=== PATIENT | male | born 1995 | race Caucasian/White ===

== ENCOUNTER 2018-02-14 10:28 | Inpatient (IN) | payer OTHER ==
[~2018-02-14] VITALS: Ht 182.9 cm; Wt 72.6 kg
--- NOTE | 2018-02-15 13:00 | NUR ---
PRE-ASSESSMENT: Pre-Assessment done at intake office, client is a/o x 4, he presents with flat affect, anxious mood, and flushed face. Client is sitting in chair, difficulty staying still. Client appears disheveled, strong body odor, he avoid eye contact and rapid speech. Scattered dry scabs on face and bilateral shoulders noted. T 97.6 , RR 18, BP 113/67, HR 70, spO2 @ 98% on RA, Pain 0/10. He is fully ambulatory. He denies any allergies; he denies any withdrawal-induced seizure, no hx of overdose. PMH: Client denies any. Denies any Past Surgical history. Client denies any suicidal/homicidal ideation at this time and reports no hx of of SI/HI. Client reports no home medications Protocol regarding vitals Q4H, UDS, blood work, and controlled substances discuss with client, he verbalized understanding.
--- NOTE | 2018-02-15 13:15 | NUR ---
Admissions Note 22 year old male admitted to [facility] for withdrawal from heroin. He stated, "I Don't want to " Client was hospitalized in [place] [facility] last night for heroin intoxication, he stated, They just gave me normal saline, lots of it, they poke me like three times or more. Client is oriented to unit, educated about protocols and how to work TV and call light in his room. Weight: 160 pounds. Height: 6 Client denies a PCP Client noted with dry scattered scabs on bilateral shoulders, back and face, he stated, I pick at my skin, dont know why. Bilateral lung clear on auscultation, abdomen soft, non-tender, no edema noted. Client has NKDA, regular diet, full code ordered. Substance history First time used at 18 y/o using opioid pills after that it was not enough and he starting using heroin on a daily basis, he is using 1 gram IV for a month and a half. Last used 02/14/18 around 1600. Alprazolam first time used at 20 years old, consumes 4-8 mg PO 2-3 x a week, last used a week ago 4 mg. Cocaine first time using at age [age] years old, he currently uses 1 gram IV for a month and a half. Last used 02/14/18 around 1600. Cannabis since the age of 18, he smokes 1 oz daily, last used 02/14/18. LBM was 02/14/18. He declines PNA vaccine, stating, "No, I don't those vaccines work.." He gives verbal consent for HIV. Client states that he lives with parents and 12 year old brother. He reports history of three prior treatment. Client attended [facility] for 8 days and then to treatment for 30 days December 1016. [facility] less than 5 days on July 2016. [facility] for 15 days in 2015, can not remember exact month. His longest period of sobriety is for a month and a half on January 2017. Client stated the reason why he relapses, "It get to think how it feel when Im using and it just triggers my needs for it, and I cant help it. Client stated, When I dont use and I get withdrawal symptoms, is the worst time in my life, I get spacey, stomach pain, my joints hurts, sometimes I feel like my body is on fire, I dont know how to explain it, but you will see it in a few hours. When asked client how this treatment will be different he stated, "I do not know, I will find out here." Client reports that the reason why he continues to use substances is, "I like the feeling, plus I have easy access to them, and I can get them half the weathers, so that is not helping me a lot, now that I think about it. Client wants to stop using drugs because I am afraid to , I only finish 11th grade in high school, I should be a role model for my little brother. His parents are very supportive of him. He reports the barriers to become sober are "I think the biggest barrier or only barrier really, is myself. Client reports been in shelter November- first week of December [address] Gonzalez notified of client's admission. Urine was collected. All safety measures instituted. [place] precaution. Call light within reach. Will continue to monitor.
[2018-02-15 14:18] LABS: *AMPHETAMINE, URINE POSITIVE (NEGATIVE); *BARBITURATE, URINE NEGATIVE (NEGATIVE); *CANNABINOID, URINE POSITIVE (NEGATIVE); *COCCAINE, URINE NEGATIVE (NEGATIVE); *OPIATE, URINE POSITIVE (NEGATIVE); *PHENCYCLIDINE SCREEN,URINE NEGATIVE (NEGATIVE)
[2018-02-15] MEDS ORDERED: 4 DAY TAPER BUPRENORPHINE -SERENITY PROTOCOL SL PRN (14:45)
[2018-02-15] MEDS ORDERED: CLONIDINE HCL 0.1 MG TABLET PO PRN (15:30)
[2018-02-15] MEDS ORDERED: LOPERAMIDE HCL 2 MG CAPSULE PO PRN ×2 (15:30)
[2018-02-15] MEDS ORDERED: MAGNESIUM HYDROXIDE 30 ML LIQUID UDC PO PRN (15:30)
[2018-02-15] MEDS ORDERED: DICYCLOMINE HCL 20 MG TABLET PO PRN (15:30)
[2018-02-15] MEDS ORDERED: MAG HYDROX/AL HYDROX/SIMETH 30 ML LIQUID UDC PO PRN (15:30)
[2018-02-15] MEDS ORDERED: ACETAMINOPHEN 325 MG TABLET PO PRN (15:30)
[2018-02-15] MEDS ORDERED: ONDANSETRON HCL 4 MG TABLET PO PRN (15:30)
[2018-02-15] MEDS ORDERED: IBUPROFEN 600 MG TABLET PO PRN (15:30)
[2018-02-15] MEDS ORDERED: BUPRENORPHINE HCL 2 MG TAB.SUBL SL PRN (15:30)
[2018-02-15] MEDS ORDERED: MIRALAX 17 GM POWD.PACK PO PRN (15:30)
[2018-02-15] MEDS ORDERED: diphenhydrAMINE 50 MG CAPSULE PO PRN (15:30)
[2018-02-15 16:00] VITALS: BP 110/61
--- NOTE | 2018-02-15 16:00 | NUR ---
Client is positive for amphetamine, he denies using anything but, xanax, heroin,, cocaine, and cannabis.
[2018-02-15 16:59] LABS: BASOPHILS % (AUTO) 0.8 % (0.0-2.0); EOSINOPHILS # (AUTO) 0.3 K/uL (0.0-0.7); EOSINOPHILS % (AUTO) 4.9 % (0.0-7.0); HEMATOCRIT 37.4 % (36.7-47.1); LYMPHOCYTES # (AUTO) 2.9 K/uL (20.0-40.0); LYMPHOCYTES % (AUTO) 45.8 % (20.5-74.5); MEAN CORPUSCULAR HEMOGLOBIN 31.4 uug (23.8-33.4); MEAN CORPUSCULAR HGB CONC 35 g/dL (32.5-36.3); MEAN CORPUSCULAR VOLUME 90.7 fL (73.0-96.2); MONOCYTES # (AUTO) 0.6 K/uL (2.0-10.0); MONOCYTES % (AUTO) 9.5 % (0-11); NEUTROPHILS # (AUTO) 2.5 K/uL (1.8-8.9); PLATELET COUNT (AUTO) 274 K/uL (152-348); RED BLOOD CELL COUNT(AUTO) 4.13 MIL/uL (4.06-5.63); WHITE BLOOD COUNT (AUTO) 6.3 K/uL (3.6-10.2)
[2018-02-15] MEDS: BUPRENORPHINE HCL 2 MG TAB.SUBL SL SCH ×2 (17:00→22:06)
[2018-02-15 17:09] LABS: ALANINE AMINOTRANSFERASE 93 U/L (16-63); ALKALINE PHOSPHATASE 74 U/L (50-136); ASPARTATE AMINOTRANSFERASE 28 U/L (15-37); BILIRUBIN,TOTAL 0.4 mg/dL (0.2-1.0); CARBON DIOXIDE 31 mmol/L (21-32); CHLORIDE 103 mmol/L (98-107); CREATININE 0.8 mg/dL (0.6-1.3); GLUCOSE 115 mg/dL (74-106); MAGNESIUM 1.8 mg/dL (1.8-2.4); POTASSIUM 3.8 mmol/L (3.5-5.1); TOTAL PROTEIN, SERUM 6.6 g/dL (6.4-8.2); UREA NITROGEN, BLOOD 14 mg/dL (7-18)
[2018-02-15 17:12] LABS: ETHANOL < 3 MG/DL (0-0)
--- NOTE | 2018-02-15 17:30 | NUR ---
COWS 16 Client presents with anxiety, agitation, restlessness, sweats, nausea, body aches, decreased appetite, chills, cold, restless legs, difficulty concentrating, and fatigue. Client declined Subutex 4mg SL, stating, "I'm not ready yet, I know I''ll get really sick if I take it now." MD and CN notified. Will continue to monitor.
--- NOTE | 2018-02-15 19:09 | NUR ---
END OF SHIFT Endorse client to incoming nurse, client is room, a/o x 4, he continues to present with anxious mood, flat affect, abdominal cramps, chills, sweats, restless legs, and fatigue. Adequate PO fluid intake 600mL, void x 1. Consumes 50% of meals. Last COWS 18 @ 1730. [place] precautions in place. Call light within reach.
[2018-02-15 20:30] VITALS: BP 119/65
[2018-02-15 22:03] VITALS: BP 121/70
[2018-02-15] MEDS: LORAZEPAM 1 MG TABLET PO PRN (22:06)
[2018-02-16 00:48] VITALS: BP 122/77
--- NOTE | 2018-02-16 00:51 | NUR ---
COWS Assessment Patient is noted in bed with his eyes closed. Upon entering the room patient is able to be aroused to verbal stimuli. Breathing even and non labored. Patient denies any body discomfort, chills or sweats, no stomach cramps, pulse rate is noted to be 68, no tremors noted. Patient states "can I get some more candy and go outside to smoke?" Patient was then noted to be drinking ice tea. encourage patient to refrain from drinking caffeinated beverages and he states "this wont even do anything to me." COWS noted to be 2. Will continue to monitor.
[2018-02-16] MEDS: LORAZEPAM 1 MG TABLET PO PRN ×2 (02:30→10:09)
--- NOTE | 2018-02-16 02:32 | NUR ---
PRN Medication Administration Patient is noted returning from smoke patio and verbalizing increased anxiety, restlessness, and agitation. PRN Ativan 2mg administered as per order. Will continue to monitor.
--- NOTE | 2018-02-16 03:30 | NUR ---
PRN Medication Reassessment Patient is noted in bed with his eyes closed. Breathing even and non labored. No signs of restlessness or facial grimacing noted. PRN Ativan 2mg noted to be effective. Will continue to monitor.
[2018-02-16 04:15] VITALS: BP 114/71
--- NOTE | 2018-02-16 04:15 | NUR ---
COWS and CIWA Patient is noted in bed with his eyes closed. Breathing even and non labored. He is able to be awaken by verbal stimuli. Explained that vitals were ordered. vitals rendered. Patient is noted to easily fall back to sleep. COWS not able to be completed as per order. Will continue to monitor.
--- NOTE | 2018-02-16 07:13 | NUR ---
End of Shift Patient is noted in bed with his eyes closed. Breathing even and non labored. Patient continues on a modified Subutex taper with PRN Ativan available for increased signs and symptoms of anxiety and agitation. patient was noted with increased chills, sweats, restlessness, discomfort, running nose, increased anxiety, agitation. PRN Ativan 2mg administered x2 with medication noted to be effective. Patient noted to sleep a total of 8 hours. Last noted COWS 2 and CIWA 1. All needs attended to promptly. Will endorse to continue plan of care as ordered.
--- NOTE | 2018-02-16 07:30 | NUR ---
Start of Shift Control Panel Assembler received report on 22 year old male admitted t [facility] on 02/15/18 for medical management of Benzodiazepine and Heroin withdrawals. Pt endorses NKA, full code and regular diet. Pt endorses no PMH or PPH, with no history of seizures. Currently on Subutex taper, with PRN Ativan. Pts last recorded CIWA 4 and COWS 2, per NOC report. Pt was administered 2mg Ativan(anxiety) x2, per NOC report. Control Panel Assembler encounters pt in pts room, resting with eyes closed and even and unlabored respirations noted. Bed in low position, with wheels locked and side rails up x2. Will continue to monitor, support and encourage according to plan of care.
--- NOTE | 2018-02-16 08:00 | NUR ---
CIWA 10/COWS 8 Pt is restless and anxious, diaphoretic and nauseous with lower back pain. Will continue to monitor, support and encourage according to plan of care.
[2018-02-16 08:45] VITALS: BP 119/65
[2018-02-16] MEDS ORDERED: BUPRENORPHINE HCL 2 MG TAB.SUBL SL SCH (09:00)
[2018-02-16] MEDS ORDERED: TUBERCULIN,PURIF.PROT.DERIV. 5 TU/0.1 ML TEST ID ONE (09:00)
--- NOTE | 2018-02-16 10:09 | NUR ---
PRN Ativan Pt asks for Ativan, due to anxiety. Pt is anxious and restless. Software Engineer Mobile administered per order with pt tolerating well. Will continue to monitor, support and encourage according to plan of care.
[2018-02-16 12:30] VITALS: BP 139/85
--- NOTE | 2018-02-16 12:30 | NUR ---
CIWA 9/COWS 9 Pt with moist skin, anxiety and restlessness. Pt complain of nausea and muscle cramps. Will continue to monitor, support and encourage according to plan of care.
[2018-02-16] MEDS ORDERED: QUETIAPINE FUMARATE 25 MG TABLET PO PRN (15:00)
[2018-02-16] MEDS: BUPRENORPHINE HCL 2 MG TAB.SUBL SL SCH ×2 (15:19→21:43)
[2018-02-16 16:30] VITALS: BP 131/86
--- NOTE | 2018-02-16 16:30 | NUR ---
COWS 9 Pt reports muscle aches and nausea, pt is anxious and restless. Will continue to monitor, support and encourage according to plan of care.
--- NOTE | 2018-02-16 19:09 | NUR ---
End of Shift Director Mba provided report on 22 year old male admitted t [facility] on 02/15/18 for medical management of Benzodiazepine and Heroin withdrawals. Pt endorses NKA, full code and regular diet. Pt endorses no PMH or PPH, with no history of seizures. Currently on Subutex taper, with PRN Ativan. Pts last recorded COWS 9 recorded at 1630. Pt was administered Ativan(anxiety) PRN on day shift. Pt is entitled, rude and defensive, although apologetic. Pt is social and visible on the unit. Linear thought process with clear speech pattern. Irritable and easily agitated. Became argumentative with staff and disrespectful, later coming back to apologize. Bed in low position, with wheels locked and side rails up x2.
--- NOTE | 2018-02-16 19:14 | NUR ---
Start of shift note Received report from day shift nurse. Pt is a 22 yo male, A+Ox4, presenting to [facility] for Opiate/Benzo/Cocaine withdrawal. Pt noted to be fatigued, agitated, and anxious. Pt has no medical HX to report. Pt is on 5 day Subutex taper and PRN Ativan, tolerated well. Respirations even and unlabored. Will continue to monitor.
[2018-02-16 20:08] VITALS: BP 128/69
--- NOTE | 2018-02-16 20:08 | NUR ---
COWS Assessment COWS: 9. Pt noted with chills, enlarged pupils, fatigue, stuffy nose, fine tremors, anxiety, and piloerection of skin. Respirations even and unlabored. Will continue to monitor.
--- NOTE | 2018-02-17 00:25 | NUR ---
COWS Assessment V/S refused and COWS deferred for sleep. Pt is resting well in bed. Respirations even and unlabored. Will continue to monitor.
--- NOTE | 2018-02-17 04:14 | NUR ---
COWS Assessment V/S refused and COWS deferred for sleep. Pt is resting well in bed. Respirations even and unlabored. Will continue to monitor.
--- NOTE | 2018-02-17 07:00 | NUR ---
End of shift note Pt was continuously noted with fatigue, anxiety, and agitation. Pt remained in room for majority of shift except to get food from kitchen and to go smoke on smoking patio. Pt remained cooperative and compliant with all aspects of treatment. Pt was not given any PRN medications during shift. Pt is on 5 day Subutex taper, tolerated well. Pt slept for a total of 11 HRS. Last COWS: 9 @2007. Respirations even and unlabored. Will endorse to day shift nurse.
--- NOTE | 2018-02-17 07:30 | NUR ---
START OF SHIFT Pt 22 y/o male admitted for withdrawal from heroin. Pt received walking around hallway. Pt alert and oriented to name, place, and time. [place]. Respirations even and unlabored. Bilateral hand tremors noted. Pt appears disheveled. Clothes with dirt on it. Pt intrusive, and anxious this morning, appears focused on medications, asking multiple times when medications are due. Pt appeared upset when told that medications were due in 30 mins, appeared angry mumbling to self and scratching head. It was reported that pt slept for 11 hours last night. Pt is on a 5 day subutex taper and is on day 2. Last reported cows=9 @ 1999. Bed on lowest position with side rails x2 up for safety. Call light within reach.
[2018-02-17 08:00] VITALS: BP 116/70
--- NOTE | 2018-02-17 08:00 | NUR ---
COWS ASSESSMENT cows=16. Pt with bilateral hand tremors noted. Pt with c/o chills and intermittent sweats. Pt anxious and restless this morning. Pt agitated this morning. Pt intrusive and appears focused on medications requesting for times the medications, about 6 times this morning. Pt observed pacing the hallways in a rushed mood.
[2018-02-17] MEDS: BUPRENORPHINE HCL 2 MG TAB.SUBL SL SCH ×3 (08:39→20:56)
[2018-02-17 12:00] VITALS: BP 109/60
--- NOTE | 2018-02-17 12:00 | NUR ---
COWS ASSESSMENT cows=13. Pt with bilateral hand tremors noted. Pt still with nasal congestion. Pt states has intermittent perspiration and generalized body aches. Pt irritable and agitated throughout the day.
[2018-02-17 16:00] VITALS: BP 112/68
--- NOTE | 2018-02-17 17:07 | NUR ---
COWS ASSESSMENT cows=13. Pt with bilateral hand tremors noted. Anxious and restless, not able to sit still. Pt intrusive, demanding, and irritable. Nasal congestion noted. Complaints of generalized body aches, chills and intermittent sweats.
--- NOTE | 2018-02-17 18:51 | NUR ---
END OF SHIFT Pt 22 y/o male admitted for withdrawal from heroin. Pt alert and oriented to name, place, and time. [place]. Skin warm and moist to touch. Respirations even and unlabored. Bilateral hand tremors noted. Pt appears disheveled. Pt with dirty clothes on. Dirty under fingernails noted. Pt malodorous. Clothes scattered throughout the room. Encouraged to maintain hygiene. Pt intrusive and demanding at times throughout the day. Pt easily irritable wanting things done immediately this morning. Pt mostly isolative to room throughout the day. Pt did not attend group activity. Pt was seen by MD today. Pt medication compliant. Pt is on a 5 day subutex taper and is on day 2. Last cows=13 @1600. Bed on lowest position with side rails x2 up for safety. Call light within reach.
--- NOTE | 2018-02-17 19:53 | NUR ---
START OF SHIFT NOTE Rcvd report from outgoing nurse, pt is currently in his room. Pt is a 22 y/o male A/O to person, place, time, and purpose. Pt was admitted for medically supervised withdrawal from Heroin, Xanax, and Cocaine. Pt c/o body aches, sweats, anxiety, and agitation. Pt has been presenting w/ unkempt and disheveled appearance, malodorous, irritability, depressed and withdrawn mood, isolative, and nasal stuffiness. Pt denies S/I and H/I. Pt rcvd no PRN medicatiosn during previous shift. Last COWS 13 @ 1600. Call light is within reach. Pt will continue to be monitored and needs met.
[2018-02-17 20:00] VITALS: BP 110/87
--- NOTE | 2018-02-17 20:00 | NUR ---
COWS ASSESSMENT COWS 13. Pt presenting w/ body aches, sweats, anxiety, agitation, unkempt and disheveled appearance, malodorous, irritability, depressed and withdrawn mood, isolative, and nasal stuffiness. V/S:T:97.9, P:62, RR:16, SPO2:100, and BP:110/57.
--- NOTE | 2018-02-17 20:57 | NUR ---
PRN SEROQUEL ADMINISTRATION Seroquel 50mg given for insomnia. Pt c/o difficulty falling and staying asleep. Will reassess pt in 1 hr.
--- NOTE | 2018-02-17 21:57 | NUR ---
PRN SEROQUEL REASSESSMENT Pt is awake. Advised pt he should try to relax in bed w/ the TV off or at least low volume, the lights off, and the door closed. Then try some deep breathing exercises. Pt passively said they would try. Will keep monitoring pt.
--- NOTE | 2018-02-18 00:07 | NUR ---
COWS DEFERRED AND V/S REFUSED Pt is in bed w/ his eyes closed. Pt's respirations are unlabored and even.
[2018-02-18 04:07] VITALS: BP 117/71
--- NOTE | 2018-02-18 04:09 | NUR ---
COWS ASSESSMENT COWS 11. Pt presenting w/ sweats, tremors, goose bumps, chills, anxiety, restlessness, depressed mood, and flat affect. Pt states they had a vivid dream that woke them up. Pt states they will be able to fall back asleep after they have a smoke. V/S: T:97.8, P:68, RR:18, SPO2: 99, and BP:117/71. Will continue to monitor pt.
[2018-02-18 05:05] LABS: HEPATITIS B SURFACE AG Negative (Negative)
--- NOTE | 2018-02-18 07:11 | NUR ---
END OF SHIFT NOTE Endorsed pt to oncoming nurse, pt is currently in his room. Pt is a 22 y/o male A/O to person, place, time, and purpose. Pt was admitted for medically supervised withdrawal from Heroin, Xanax, and Cocaine. Pt c/o body aches, sweats, anxiety, and agitation. Pt has been presenting w/ unkempt and disheveled appearance, malodorous, irritability, insomnia, depressed and withdrawn mood, isolative, and nasal stuffiness. PRN Seroquel 50mg given @ 2056 for sleep, noted effective.Pt's fluid intake was 1600ml and he voided 2 times. Pt slept for 6 hrs. Last COWS 11 @ 0400. Call light is within reach.
--- NOTE | 2018-02-18 07:30 | NUR ---
START OF SHIFT NOTE Received report from night nurse, 58 year old male admitted for ETOH/Hydrocodone withdrawal and patient completed his Ativan and Subutex taper tolerated well. Per endorsement patient received PRN Trazodone,Tylenol effective per night nurse, Last CI, slept for 5 hours and patient continues on BS monitoring. Received patient asleep responsive to verbal and tactile stimuli. Patient states " I please go away i wanted to sleep". Patient noted breathing normal no SOB noted. Skin intact warm and dry to touch. All safety measures in place, Call light within reach. Will cont to monitor. Addendum: 02/18/18 at 0936 by ADORE ESPANA LVN correction- wrong patient charting
--- NOTE | 2018-02-18 07:50 | NUR ---
START OF SHIFT NOTE Received report from night nurse, 22 year old male admitted for Heroin/Xanax/Cocaine withdrawal and patient continues with Subutex taper tolerating well. Per endorsement patient received PRN Seroquel effective per night nurse, Last -, slept for 6 hours and Received patient alert awake abdominal cramps, bilateral hand tremors, hot cold flashes, yawning, anxious, agitated, restless. Educated patient regarding the importance of attending groups activities. All safety measures in place, Call light within reach. Will cont to monitor.
[2018-02-18 08:00] VITALS: BP 106/62
--- NOTE | 2018-02-18 08:00 | NUR ---
COWS ASSESSMENT COWS score noted 12, patient noted with Bilateral hand tremors, chills, difficulty sitting still, yawning, anxiety, agitation, restless, piloerection of skin, stuffy nose.
[2018-02-18] MEDS ORDERED: BUPRENORPHINE HCL 2 MG TAB.SUBL SL SCH (09:00)
[2018-02-18 12:00] VITALS: BP 117/58
--- NOTE | 2018-02-18 12:00 | NUR ---
COWS ASSESSMENT COWS 10. Pt has an unkempt room, a disheveled appearance, a flat affect and pt is laying in bed in his room. Pt presents the following s/s: anxiety, agitation, restlessness, irritability, goose bumps, anhedonia, dysphonia, body aches, sweats, hot cold flashes, chills, difficulty sitting still, bilateral hand tremors, stuffy nose, and yawning. Will cont to monitor.
--- NOTE | 2018-02-18 13:58 | NUR ---
Promped client to attend group sessions.
[2018-02-18 16:00] VITALS: BP 116/65
--- NOTE | 2018-02-18 16:00 | NUR ---
COWS ASSESSMENT COWS 9. Pt has an unkempt room, a disheveled appearance, a flat affect and pt is laying in bed in his room. Pt presents the following s/s: anxiety, agitation, restlessness, irritability, anhedonia, dysphonia, body aches, sweats, hot cold flashes, chills, difficulty sitting still, bilateral hand tremors, stuffy nose. Will cont to monitor.
--- NOTE | 2018-02-18 19:01 | NUR ---
END OF SHIFT NOTE Gave report to night nurse 22 year old male admitted for Heroin/Xanax/Cocaine withdrawal. Patient completed his taper tolerated well. Patient presented with anxiety, agitation, restless and fatigue. During shift patient received scheduled medications Patient noted attending groups activities. Most recent CIWA score noted 9. Patient scheduled for discharge in AM. Patient is compliant with medications and treatment plan. All safety measures in place, call light within reach. Patient endorse to night nurse in stable condition.
--- NOTE | 2018-02-18 19:51 | NUR ---
START OF SHIFT NOTE Rcvd report from outgoing nurse. Pt is a 22 y/o male A/O to person, place, time, and purpose. Pt was admitted for medically supervised withdrawal from Heroin and Xanax. Pt has been presenting w/ restless legs, anxious mood, disheveled and unkempt appearance, disheveled room, and clammy skin. Pt denies S/I and H/I. Pt rcvd no PRN medications during the previous shift. Pt is being discharged tomorrow 02/19/18. MD requested to be notified if s/s of withdrawal manifest or increase. Last COWS 9 @ 1600. Call light is within reach. Pt will continue to be monitored and needs met.
--- NOTE | 2018-02-18 20:00 | NUR ---
COWS ASSESSMENT COWS 8. Pt presenting w/ restless legs, anxiety, sweats, depressed and withdrawn mood, flat affect, and isolative. Pt's appearance is disheveled and unkempt. Pt's room is also disheveled. V/S: T:97.5, P:68, RR:12, SPO2:98, and BP:134/67.
[2018-02-18 20:01] VITALS: BP 134/67
--- NOTE | 2018-02-18 20:21 | NUR ---
PRN CLONIDINE AND TYLENOL ADMINISTRATION Clonidine 0.1mg and Tylenol 650mg given for anxiety, sweats, and headache. Will reassess pt in 1 hr.
--- NOTE | 2018-02-18 20:26 | NUR ---
PRN ZOFRAN ADMINISTRATION Zofran 4mg SL given for emesis w/ 1 episode of emesis. Will reassess pt in 1 hr.
--- NOTE | 2018-02-18 21:21 | NUR ---
PRN CLONIDINE AND TYLENOL REASSESSMENT Pt is in bed w/ eyes closed. pt's respirations are unlabored and even.
--- NOTE | 2018-02-18 21:26 | NUR ---
PRN ZOFRAN REASSESSMENT Pt is in bed w/ his eyes closed. Pt's respirations are unlabored and even.
--- NOTE | 2018-02-19 00:03 | NUR ---
COWS DEFERRED Pt is in bed w/ his eyes closed. Pt's respirations are unlabored and even.
--- NOTE | 2018-02-19 04:08 | NUR ---
COWS DEFERRED Pt is in bed w/ his eyes closed. Pt's respirations are unlabored and even.
--- NOTE | 2018-02-19 07:19 | NUR ---
END OF SHIFT NOTE Endorsed pt to oncoming nurse. Pt is a 22 y/o male A/O to person, place, time, and purpose. Pt was admitted for medically supervised withdrawal from Heroin and Xanax. Pt has been presenting w/ restless legs, nausea w/ 1 episode of emesis, anxious mood, disheveled and unkempt appearance, disheveled room, and clammy skin. PRN Clonidine 0.1mg , Zofran 4mg SL, and Tylenol 650mg given @ 2024 for headache, nausea, anxiety, and sweats. Pts fluid intake was 1200ml and he voided 3 times. Pt slept for 6 hrs. Last COWS 8 @ 1999. Call light is within reach.
--- NOTE | 2018-02-19 07:48 | NUR ---
START OF SHIFT NOTE Received report from night nurse, 22 year old male admitted for Heroin/Xanax/Cocaine withdrawal and patient completed his Subutex taper tolerating well. Per endorsement patient received PRN Clonidine,Tylenol, Zofran effective per night nurse, Last COWS -8, slept for 6 hours. Received patient alert awake oriented x4. Patient scheduled for discharge this morning. Patient is excited about being discharge. Educated patient regarding the importance of being compliant at rehab, patient verbalized understanding. All safety measures in place, Call light within reach. Will cont to monitor.
[2018-02-19 08:00] VITALS: BP 99/58
--- NOTE | 2018-02-19 09:35 | NUR ---
DISCHARGE NOTE Patient admitted for Heroin/Xanax/Cocaine withdrawal and patient completed his Subutex taper tolerated well. Patient denies any SI/HI. Vital signs WNL. Skin intact warm and dry to touch. All discharge paper work completed sign and dated. Patient returned all of his belonging. Patient denies any discomfort. Patient able to eat 100% of his breakfast. Patient discharge from [facility] on 02/19/18 at 0935. notified.
== END 2018-02-19 09:48 | disposition other institution (70) | DRG 895 ==
LOC: SRC 02-15 12:27
PROVIDERS: ADMIT Family Medicine Addiction Medicine; ATTEND Family Medicine Addiction Medicine
PROC: HZ2ZZZZ Detoxification Services for Substance Abuse Treatment (ICD-10-PCS; principal; 2018-02-15)
PROC: HZ41ZZZ Group Counseling for Substance Abuse Treatment, Behavioral (ICD-10-PCS; 2018-02-16)
DX: F11.23 Opioid dependence with withdrawal (principal); F33.2 Major depressive disorder, recurrent severe without psychotic features; B19.10 Unspecified viral hepatitis B without hepatic coma; F41.1 Generalized anxiety disorder; F17.210 Nicotine dependence, cigarettes, uncomplicated; Z59.0 Homelessness; Z65.3 Problems related to other legal circumstances; G47.00 Insomnia, unspecified; F10.239 Alcohol dependence with withdrawal, unspecified; F12.10 Cannabis abuse, uncomplicated; Y90.0 Blood alcohol level of less than 20 mg/100 ml; B19.20 Unspecified viral hepatitis C without hepatic coma
CPT/HCPCS: 36415; 80307; 80324; 80349; 80361; 83735; 85025; 86592; 86705; 86803; 87340; 87806; A4663; G0480; Q0162